=== PATIENT | male | born 1975 | race Caucasian/White ===

== ENCOUNTER 2020-07-20 19:33 | Emergency (ER) | payer BC ==
[~2020-07-20] VITALS: Ht 177.8 cm; Wt 69.4 kg
[2020-07-20 19:35] VITALS: BP 113/64
--- NOTE | 2020-07-20 19:40 | NUR ---
pt bibself c/o body pain, fever, and chills s/p TDAP shot yesterday. Pt aaox4 breathing evenly and unlabored. pt attached to monitor andpox. pt given blanket and call light within reach
[2020-07-20] MEDS ORDERED: ACETAMINOPHEN ES 500 MG TABLET PO ONE (20:00)
[2020-07-20] MEDS ORDERED: IBUPROFEN 600 MG TABLET PO ONE (20:00)
[2020-07-20] MEDS ORDERED: IBUPROFEN 600 MG TABLET ONE (20:01)
[2020-07-20] MEDS ORDERED: ACETAMINOPHEN ES 500 MG TABLET ONE (20:01)
[2020-07-20 20:04] LABS: BILIRUBIN,URINE SMALL (NEGATIVE); COLOR,URINE DARK YELLOW (YELLOW); LEUKOCYTE ESTERASE ,URINE Negative (NEGATIVE); NITRITE, URINE Negative (NEGATIVE); PROTEIN,URINE 30 mg/dl (NEGATIVE); UGLUCOSE 100 MG/DL mg/dL (NEGATIVE)
--- NOTE | 2020-07-20 20:08 | NUR ---
covid swab sent to lab
--- NOTE | 2020-07-20 20:16 | NUR ---
xray at bedside
[2020-07-20 20:21] LABS: BACTERIA,URINE Rare /HPF (None Seen); RBC,URINE 0-2 /HPF (0-2); SQUAMOUS EPITHELIAL CELL,UR 0-2 /HPF (None Seen); WBC,URINE 0-2 /HPF (0-3)
[2020-07-20 20:22] LABS: MUCUS,URINE Few /LPF (None Seen)
--- NOTE | 2020-07-20 20:48 | NUR ---
Patient discharged to home in stable condition. Written and verbal after care instructions given. Patient verbalizes understanding of instruction. Pt ambulatory with a steady gait
== END 2020-07-20 20:48 | disposition home or self-care (01) ==
LOC: ER 19:46
DX: R50.9 Fever, unspecified (principal); M79.10 Myalgia, unspecified site; Z20.822 Contact with and (suspected) exposure to COVID-19; R01.1 Cardiac murmur, unspecified
CPT/HCPCS: 71045; 81001; 87426; 99284; C9803